=== PATIENT | female | born 1955 | race Caucasian/White ===

== ENCOUNTER → 2024-09-25 | Day surgery (SDC) | payer MEDICARE ==
[~2024-09-25] MED LIST: Iohexol 300 - 10 ML VIAL MC ONE; Lidocaine PF 2% (20 MG/ML) 2 ML VIAL IJ ONE
== END ==
LOC: WKSPAIN 13:27
DX: M54.17 Radiculopathy, lumbosacral region (principal); M96.1 Postlaminectomy syndrome, not elsewhere classified; M54.16 Radiculopathy, lumbar region

== ENCOUNTER → 2024-11-13 | Day surgery (SDC) | payer MEDICARE ==
[~2024-11-13] MED LIST changes: +Iohexol 300 - 10 ML VIAL IV ONE; -Iohexol 300 - 10 ML VIAL MC ONE; -Lidocaine PF 2% (20 MG/ML) 2 ML VIAL IJ ONE; +Lidocaine PF 2% (20 MG/ML) 2 ML VIAL IJ SCH
== END ==
LOC: WKSPAIN 11-06 16:04
DX: M47.26 Other spondylosis with radiculopathy, lumbar region (principal); M79.2 Neuralgia and neuritis, unspecified; M96.1 Postlaminectomy syndrome, not elsewhere classified; M48.061 Spinal stenosis, lumbar region without neurogenic claudication; F17.200 Nicotine dependence, unspecified, uncomplicated

== ENCOUNTER → 2024-11-29 | Outpatient (CLI) | payer MEDICARE | LOC: RAD 11:28 | DX: M25.552 Pain in left hip (principal) ==

== ENCOUNTER → 2025-01-15 | Day surgery (SDC) | payer MEDICARE | LOC: WKSPAIN 10:56 | DX: M47.817 Spondylosis without myelopathy or radiculopathy, lumbosacral region (principal); M54.50 Low back pain, unspecified ==